=== PATIENT | female | born 1975 | race Caucasian/White ===

== ENCOUNTER 2018-07-10 11:54 | Observation (INO) ==
[2018-07-10] MEDS ORDERED: NS 1000 ML 1,000 ML ONE ×2 (12:35→14:34)
[2018-07-10] MEDS ORDERED: NS 1000 ML 1,000 ML IV ONE (12:40)
[2018-07-10] MEDS ORDERED: ZOFRAN INJ 4 MG VIAL IVP ONE (12:40)
[2018-07-10] MEDS ORDERED: PEPCID 20 MG IV PREMIX* 20 MG/50 ML BAG IV ONE ×2 (12:40→13:04)
--- NOTE | 2018-07-10 12:43 | ED.ABDFE ---
HPI Time Seen Time Seen by Provider: 07/10/18 12:39 PCP Primary Care Physician: ESTIVEN Complaint Chief Complaint:: ABD PAIN TO RIGHT UPPER SIDE THAT STARTED X1 WEEK AGO AND HAS PROGRESSED TO UNBEARABLE. VOMITING AND DIARRHEA WITH ANY FOOD INTAKE. Self Treatment fo Chief Complaint: NPO SINCE LAST NIGHT Source History Provided: Patient and Family Member Mode of arrival Mode of Arrival: Ambulatory Timing Onset of Chief Complaint: 07/02/18 PMH PMH Past Medical History: Yes Past Medical History: Anemia, Anxiety, Arthritis, Depression, Diabetes, Dyslipidemia, GERD, Gout, Headaches and Hypertension Past Medical History Comment: FIBROMYALGIA Past Surgical History: Yes Surgical History: Tonsillectomy Family History History of Family Medical Conditions: Yes Family Medical History: Diabetes Mellitus, Cancer, [place], Coronary Artery Disease, Heart Failure, Sudden Cardiac and Hypertension Social History Does any household member use tobacco: No Alcohol Use: None Do you use any recreational Drugs:: No Lives With: Family Lives Where: Home infectious screening In the last 2 months have you had wt loss of >10#?: NO Have you had fever, night sweats or hemotysis?: No Have you traveled outside the country in the last 6 months?: No Isolation: Standard PE Vital Signs Vitals: Temperature 97.9 F Pulse Rate [Right Radial] 68 Pulse Rate 97 Respiratory Rate 18 Blood Pressure [Left Arm] 136/78 Blood Pressure 132/89 O2 Sat by Pulse Oximetry 100 ROR Labs Reviewed Result Diagrams: 07/10/18 12:46 07/10/18 12:46 Laboratory: WBC 7.4 X10^3/uL (3.6-10.0) 07/10/18 12:46 RBC 4.70 X10^6/uL (3.5-5.4) 07/10/18 12:46 Hgb 13.2 g/dL (12.0-16.0) 07/10/18 12:46 Hct 40.0 % (36.0-47.0) 07/10/18 12:46 MCV 85.0 fL (80.0-100.0) 07/10/18 12:46 MCH 28.0 pg (27.0-34.0) 07/10/18 12:46 MCHC 32.9 g/dL (33.0-35.0) L 07/10/18 12:46 RDW 15.4 % (11.6-16.5) 07/10/18 12:46 Plt Count 284 X10^3/uL (150.0-450.0) 07/10/18 12:46 MPV 8.7 fL (7.4-11.0) 07/10/18 12:46 Neut % (Auto) 64.7 % (42.0-75.0) 07/10/18 12:46 Lymph % (Auto) 25.3 % (21.0-51.0) 07/10/18 12:46 [place] % (Auto) 6.8 % (0.0-13.0) 07/10/18 12:46 Eos % (Auto) 2.2 % (0.9-2.9) 07/10/18 12:46 Baso % (Auto) 1.0 % (0.2-1.0) 07/10/18 12:46 Neut # (Auto) 4.8 x10^3/uL (2.2-4.8) 07/10/18 12:46 Lymph # (Auto) 1.9 X10^3/uL (1.3-2.9) 07/10/18 12:46 [place] # (Auto) 0.5 x10^3/uL (0.3-0.8) 07/10/18 12:46 Eos # (Auto) 0.2 x10^3/uL (0.0-0.2) 07/10/18 12:46 Baso # (Auto) 0.1 X10^3/uL (0.0-0.1) 07/10/18 12:46 Absolute Nucleated RBC 0.0 /100WBC 07/10/18 12:46 Sodium 142 mmol/L (136-145) 07/10/18 12:46 Corrected Sodium TNP 07/10/18 12:46 Potassium 5.1 mmol/L (3.5-5.1) 07/10/18 12:46 Chloride 108 mmol/L (98-107) H 07/10/18 12:46 Carbon Dioxide 23.9 mmol/L (21-32) 07/10/18 12:46 BUN 23 mg/dL (7-18) H 07/10/18 12:46 Creatinine 1.62 mg/dL (0.55-1.02) H 07/10/18 12:46 Est GFR (MDRD) Af Amer 45 (>60) L 07/10/18 12:46 Est GFR (MDRD) Non-Af 37 (>60) L 07/10/18 12:46 Glucose 99 mg/dL (65-99) 07/10/18 12:46 Calcium 9.4 mg/dL (8.5-10.1) 07/10/18 12:46 Corrected Calcium TNP 07/10/18 12:46 Total Bilirubin 0.70 mg/dL (0.2-1.0) 07/10/18 12:46 AST 20 Units/L (15-37) 07/10/18 12:46 ALT 20 Units/L (12-78) 07/10/18 12:46 Alkaline Phosphatase 68 Units/L (46-116) 07/10/18 12:46 Total Protein 7.5 g/dL (6.4-8.2) 07/10/18 12:46 Albumin 3.6 g/dL (3.4-5.0) 07/10/18 12:46 Globulin 3.9 g/dL (2.5-4.5) 07/10/18 12:46 Albumin/Globulin Ratio 0.9 Ratio (1.1-2.1) L 07/10/18 12:46 Amylase 51 Units/L (25-115) 07/10/18 12:46 Lipase 248 Units/L (73-393) 07/10/18 12:46 Specimen Type Clean catch urine 07/10/18 14:08 Urine Color Yellow (YELLOW) 07/10/18 14:08 Urine Appearance Hazy (CLEAR) 07/10/18 14:08 Urine pH 5.0 (5.0 - 8.0) 07/10/18 14:08 Ur Specific [place] 1.010 (1.000-1.030) 07/10/18 14:08 Urine Protein Negative (NEGATIVE) 07/10/18 14:08 Urine Glucose (UA) Negative (NEGATIVE) 07/10/18 14:08 Urine Ketones Negative (NEGATIVE) 07/10/18 14:08 Urine Occult Blood Negative (NEGATIVE) 07/10/18 14:08 Urine Nitrite Negative (NEGATIVE) 07/10/18 14:08 Urine Bilirubin Negative (NEGATIVE) 07/10/18 14:08 Urine Urobilinogen Normal (NORMAL) 07/10/18 14:08 Ur Leukocyte Esterase 1+ (NEGATIVE) 07/10/18 14:08 Urine RBC None seen /HPF (NONE SEEN) 07/10/18 14:08 Urine WBC 0-2 /HPF (NONE SEEN) 07/10/18 14:08 Ur Squamous Epith Cells Negative /HPF (NEGATIVE) 07/10/18 14:08 Urine Bacteria Negative /HPF (NEGATIVE) 07/10/18 14:08 Ur Culture Indicated? No/not indicated 07/10/18 14:08
[2018-07-10 12:53] LABS: BASOPHILS # (AUTO) 0.1 X10^3/uL (0.0-0.1); EOSINOPHILS # (AUTO) 0.2 x10^3/uL (0.0-0.2); EOSINOPHILS % (AUTO) 2.2 % (0.9-2.9); HEMOGLOBIN 13.2 g/dL (12.0-16.0); LYMPHOCYTES # (AUTO) 1.9 X10^3/uL (1.3-2.9); LYMPHOCYTES % (AUTO) 25.3 % (21.0-51.0); MEAN CORPUSCULAR HGB CONC 32.9 g/dL (33.0-35.0); MEAN PLATELET VOLUME 8.7 fL (7.4-11.0); MONOCYTES # (AUTO) 0.5 x10^3/uL (0.3-0.8); MONOCYTES % (AUTO) 6.8 % (0.0-13.0); NEUTROPHILS # (AUTO) 4.8 x10^3/uL (2.2-4.8); NEUTROPHILS % (AUTO) 64.7 % (42.0-75.0); PLATELET COUNT 284 X10^3/uL (150.0-450.0); RED CELL DISTRIBUTION WIDTH 15.4 % (11.6-16.5); WHITE BLOOD COUNT 7.4 X10^3/uL (3.6-10.0)
[2018-07-10] MEDS ORDERED: ZOFRAN INJ 4 MG VIAL ONE (13:04)
[2018-07-10 13:13] LABS: ALANINE AMINOTRANSFERASE 20 Units/L (12-78); ALBUMIN 3.6 g/dL (3.4-5.0); ALKALINE PHOSPHATASE 68 Units/L (46-116); AMYLASE 51 Units/L (25-115); ASPARTATE AMINO TRANSFERASE 20 Units/L (15-37); BLOOD UREA NITROGEN 23 mg/dL (7-18); CALCIUM 9.4 mg/dL (8.5-10.1); CARBON DIOXIDE 23.9 mmol/L (21-32); CHLORIDE 108 mmol/L (98-107); CREATININE 1.62 mg/dL (0.55-1.02); LIPASE 248 Units/L (73-393); SODIUM 142 mmol/L (136-145); TOTAL PROTEIN 7.5 g/dL (6.4-8.2); eGFR NON BLACK RACES 37 (>60)
[2018-07-10] MEDS ORDERED: VERSED ONE (14:26)
[2018-07-10] MEDS ORDERED: EPHEDRINE SULFATE INJ ONE (14:26)
[2018-07-10] MEDS ORDERED: NEOSTIGMINE INJ ONE (14:26)
[2018-07-10] MEDS ORDERED: SUPRANE IN ONE (14:26)
[2018-07-10] MEDS ORDERED: QUELICIN (OR ANECTINE) ONE (14:26)
[2018-07-10] MEDS ORDERED: DIPRIVAN VIAL ONE (14:26)
[2018-07-10] MEDS ORDERED: ROBINUL ONE (14:26)
[2018-07-10] MEDS ORDERED: TORADOL 60 MG VIAL ONE (14:26)
[2018-07-10] MEDS ORDERED: NORCURON INJ 10 MG VIAL ONE (14:26)
[2018-07-10] MEDS ORDERED: MORPHINE SULFATE INJ 4 MG IVP ONE (14:36)
[2018-07-10] MEDS ORDERED: MORPHINE SULFATE INJ 4 MG ONE (14:45)
[2018-07-10] MEDS ORDERED: NS 1000 ML 1,000 ML IV SCH (15:00)
[2018-07-10 15:15] LABS: BILIRUBIN,URINE NEGATIVE (NEGATIVE); BLOOD/HEMOGLOBIN,URINE NEGATIVE (NEGATIVE); GLUCOSE, URINE NEGATIVE (NEGATIVE); KETONES,URINE NEGATIVE (NEGATIVE); LEUKOCYTE ESTERASE ,URINE 1+ (NEGATIVE); NITRITES,URINE NEGATIVE (NEGATIVE); PROTEIN,URINE NEGATIVE (NEGATIVE); UROBILINOGEN,URINE NORMAL (NORMAL)
[2018-07-10 15:22] LABS: APPEARANCE,URINE HAZY (CLEAR); COLOR,URINE YELLOW (YELLOW)
--- NOTE | 2018-07-10 15:22 | CT ---
CT ABDOMEN AND PELVIS WITHOUT CONTRAST CLINICAL HISTORY: 42-year-old female with right upper quadrant pain. COMPARISON: None. TECHNIQUE: Multiple contiguous computed tomographic axial images of the abdomen and pelvis were obtained without the use of oral or intravenous contrast. Images were reformatted in the coronal and sagittal planes. FINDINGS: The lung bases demonstrate no evidence of focal air-space opacification, pleural effusion, pneumothorax, or suspicious pulmonary nodules. The imaged inferior mediastinum and heart are normal in appearance without evidence of pericardial effusion. The liver, pancreas, and spleen are within normal limits for noncontrast imaging. Multiple peripherally calcified dependent gallstones within a physiologically distended gallbladder without CT evidence of acute cholecystitis. The adrenal glands and kidneys are normal bilaterally. There are no nephroureteral stones or perinephric fluid collections. There is no evidence of hydroureteronephrosis and the ureters run in an unobstructed course to a well distended urinary bladder. The uterus is anteverted and normal in size. The ovaries, vagina and perineum are within normal limits. The appendix is normal in appearance. The bowel is without obstruction or inflammation and there is no free fluid or free air within the peritoneal cavity. There are no pathologically enlarged lymph nodes in the abdomen or pelvis. The arteriovascular structures are within normal limits for a study without contrast. Soft tissues are normal. The osseous structures are intact without fracture or malalignment. Degenerative changes of the imaged spine most pronounced L5-S1 with vacuum disc. IMPRESSION: 1. Cholelithiasis without CT evidence of acute cholecystitis. Correlation with serology and ultrasound recommended. 2. Normal appendix. 3. No other acute intra-abdominal intrapelvic process. Reported By:
[2018-07-10 15:26] LABS: RBC,URINE NONE SEEN /HPF (NONE SEEN)
[2018-07-10 15:27] LABS: BACTERIA,URINE NEGATIVE /HPF (NEGATIVE); SQUAMOUS EPITHELIAL CELL,UR NEGATIVE /HPF (NEGATIVE)
[2018-07-10] MEDS ORDERED: ZOFRAN INJ 4 MG VIAL IVP PRN (16:38)
[2018-07-10] MEDS ORDERED: TRAZODONE 150 MG PO SCH (17:08)
--- NOTE | 2018-07-10 17:14 | RAD ---
Exam: Portable chest History: 42-year-old female with right upper quadrant pain. Comparison: None Findings: Heart size and pulmonary vasculature are normal. Lungs are clear with no infiltrate or significant effusion on either side. Right hemidiaphragm is mildly elevated. Bony thorax is unremarkable. Impression: No acute cardiopulmonary abnormality is seen on this exam. Reported By:
[2018-07-10] MEDS ORDERED: FLUVIRIN or FLUCELVAX IM ONE (18:15)
[2018-07-10] MEDS ORDERED: PREVNAR 13 IM ONE (18:15)
[2018-07-10] MEDS: CELEXA PO SCH (18:32)
[2018-07-10] MEDS: NORVASC TAB 10 MG PO SCH (18:33)
[2018-07-10] MEDS: ZYLOPRIM PO SCH (18:33)
[2018-07-10] MEDS: MORPHINE SULFATE INJ 4 MG IVP PRN (19:30)
[2018-07-10] MEDS ORDERED: ZOCOR TAB 40 MG PO SCH (21:00)
[2018-07-10] MEDS ORDERED: DESYREL PO SCH (21:00)
[2018-07-10] MEDS ORDERED: GLUCOPHAGE PO SCH (21:00)
[2018-07-10] MEDS ORDERED: GLUCOPHAGE ONE (21:35)
[2018-07-10] MEDS: NEURONTIN CAP 400 MG PO SCH (21:39)
[2018-07-10] MEDS: ZANAFLEX PO SCH (21:39)
[2018-07-10] MEDS: LEVAQUIN PREMIX IV 500 MG 500 MG/100 ML BAG IV SCH (21:39)
[2018-07-10] MEDS: D5 1/2 NS 1000 ML 1,000 ML IV SCH (23:02)
[2018-07-11] MEDS: D5 1/2 NS 1000 ML 1,000 ML IV SCH ×3 (00:59→15:25)
[2018-07-11] MEDS: ZANAFLEX PO SCH ×3 (03:49→14:25)
[2018-07-11] MEDS: NEURONTIN CAP 400 MG PO SCH ×2 (05:24→14:25)
[2018-07-11 05:35] LABS: BASOPHILS % (AUTO) 0.8 % (0.2-1.0); EOSINOPHILS # (AUTO) 0.2 x10^3/uL (0.0-0.2); EOSINOPHILS % (AUTO) 3.5 % (0.9-2.9); HEMATOCRIT 35.2 % (36.0-47.0); HEMOGLOBIN 11.5 g/dL (12.0-16.0); LYMPHOCYTES # (AUTO) 2.2 X10^3/uL (1.3-2.9); LYMPHOCYTES % (AUTO) 40.2 % (21.0-51.0); MEAN CORPUSCULAR HEMOGLOBIN 28.1 pg (27.0-34.0); MEAN CORPUSCULAR HGB CONC 32.7 g/dL (33.0-35.0); MEAN CORPUSCULAR VOLUME 85.9 fL (80.0-100.0); MONOCYTES # (AUTO) 0.5 x10^3/uL (0.3-0.8); MONOCYTES % (AUTO) 8.7 % (0.0-13.0); NEUTROPHILS # (AUTO) 2.6 x10^3/uL (2.2-4.8); NEUTROPHILS % (AUTO) 46.8 % (42.0-75.0); PLATELET COUNT 263 X10^3/uL (150.0-450.0); RED CELL DISTRIBUTION WIDTH 15.8 % (11.6-16.5); WHITE BLOOD COUNT 5.5 X10^3/uL (3.6-10.0)
[2018-07-11 05:47] LABS: ALANINE AMINOTRANSFERASE 17 Units/L (12-78); ALBUMIN 3.1 g/dL (3.4-5.0); ALKALINE PHOSPHATASE 56 Units/L (46-116); ASPARTATE AMINO TRANSFERASE 14 Units/L (15-37); BLOOD UREA NITROGEN 21 mg/dL (7-18); CALCIUM 8.7 mg/dL (8.5-10.1); CARBON DIOXIDE 23.7 mmol/L (21-32); CHLORIDE 106 mmol/L (98-107); COR CA(FOR HYPOALB) 9.4 mg/dL (8.5-10.1); CREATININE 1.52 mg/dL (0.55-1.02); SODIUM 139 mmol/L (136-145); TOTAL PROTEIN 6.6 g/dL (6.4-8.2); eGFR NON BLACK RACES 40 (>60)
[2018-07-11] MEDS: LEVAQUIN PREMIX IV 500 MG 500 MG/100 ML BAG IV SCH (08:22)
[2018-07-11] MEDS: MORPHINE SULFATE INJ 4 MG IVP PRN ×2 (08:22→14:24)
--- NOTE | 2018-07-11 08:23 | DR.H&P ---
H&P - History & Physical for Day of: H&P Date: 07/10/18 - Chief Complaint Chief Complaint: RUQ ABDOMINAL PAIN - History of Present Illness History of Present Illness: IS A 42 YEAR OLD PATIENT OF CATAL[place] CLAY WHO PRESENTED TO THE EMERGENCY ROOM WITH COMPLAINTS OF RIGHT UPPER QUADRANT ABDOMINAL PAIN X 1 WEEK THAT HAS PROGRESSIVELY GOTTEN WORSE. SHE REPORTS VOMITING AND DIARRHEA WITH ANY FOOD INTAKE. PAST MEDICAL HISTORY INCLUDES: ANEMIA, ANXIETY, ARTHRITIS, DEPRESSION, DIABETES, DYSLIPIDEMIA, GERD, GOUT, HTN, AND TONSILLECTOMY. ON ARRIVAL, VITALS WERE 97.9-97-18-99%-132/89. LABS WERE OBTAINED. ABNORMAL LAB VALUES INCLUDE THE FOLLOWING: CHLORIDE 108, BUN 23, CREATININE 1.62. URINALYSIS REVEALED WBC 0-2, RBC NONE SEEN, LEUKOCYTES 1+, BACTERIA NEGATIVE. AN ABDOMEN/PELVIS CT WITHOUT CONTRAST WAS OBTAINED AND REVEALED: Cholelithiasis without CT evidence of acute cholecystitis. Correlation with serology and ultrasound recommended. Normal appendix. No other acute intra- abdominal intrapelvic process. A CHEST XRAY WAS OBTAINED AND REVEALED: NO ACUTE CARDIOPULMONARY ABNORMALITY SEEN ON THIS EXAM. NORMAL SINUS RHYTHM NOTED WITH NORMAL RATE. SHE WAS GIVEN MORPHINE 4MG IV X 1, ZOFRAN 4MG IV X 1, PEPCID 20MG IV X 1, AND A NORMAL SALINE BOLUS IN THE ER WITH ONLY MILD IMPROVMENT. SHE WAS ADMITTED FOR FURTHER EVALUATION AND TREATMENT OF ABDOMINAL PAIN AND CHOLELITHIASIS. WE WILL CONTACT . SHE WILL BE STARTED ON 5D1/2NS AT 150ML/HR, LEVAQUIN 500MG IV DAILY, AND WE WILL CONTINUE HOME MEDICATIONS. OTHERWISE, WE PLAN TO FOLLOW UP WITH AM LABS AND CONTINUE TO MONITOR. - Past Medical History Past Medical History: Hypertension, Dyslipidemia, Diabetes, Depression, Anxiety, Anemia, GERD, Arthritis, Gout, Headaches - Past Surgical History Surgical History: Tonsillectomy - Family History Family Medical History: Diabetes Mellitus, Cancer, [place], Coronary Artery Disease, Heart Failure, Sudden Cardiac , Hypertension - Social History Does patient currently use any type of tobacco product: No Have you used tobacco products in the last 12 months: No Type of Tobacco Use: None Does any household member use tobacco: No Alcohol Use: None Drug Use: None - Medications Home Medications: No Known Drug Allergies Allergy (Verified 07/10/18 12:03) CONTINUE taking the following medications allopurinol 100 mg PO QDAY 07/10/18 [History] amlodipine 10 mg PO QDAY 07/10/18 [History] citalopram [Celexa] 20 mg PO QDAY 07/10/18 [History] dicyclomine 20 mg PO QID 07/10/18 [History] gabapentin 800 mg PO TID 07/10/18 [History] metformin 500 mg PO HS 07/10/18 [History] methocarbamol [Robaxin-750] 750 mg PO BID 07/10/18 [History] naproxen sodium 440 mg PO HS 07/10/18 [History] simvastatin 40 mg PO QHS 07/10/18 [History] tizanidine 4 mg PO HS 07/10/18 [History] trazodone 150 mg PO QDAY 07/10/18 [History] - Review of Systems Constitutional: Fever Eyes: No Symptoms Reported ENT: No Symptoms Reported Respiratory: No Symptoms Reported Cardiovascular: No Symptoms Reported Gastrointestinal: See HPI, Nausea, Vomiting, Abdominal Pain, Diarrhea Genitourinary: No Symptoms Reported Musculoskeletal: No Symptoms Reported Skin: No Symptoms Reported Neurological: No Symptoms Reported - Physical Exam Vital Signs: Temperature 97.6 F Pulse Rate [Right Radial] 56 Pulse Rate 97 Respiratory Rate 20 Blood Pressure [Left Arm] 89/53 Blood Pressure 132/89 O2 Sat by Pulse Oximetry 98 Oriented: Normal Eyes: Normal Ear: Normal Nose: Normal Throat: Normal Respiratory: Clear Throughout Cardiovascular: Normal. negative: S3, S4, Murmur : Normal Auscultation: Bowel Sounds: Normal Palpation: Normal Tenderness: RUQ, Moderate. negative: Rebound, Guarding, Rigidity Skin: Normal Musculoskeletal: Normal Psychiatric: Normal Mood Description: Calm Affect: Normal Speech Pattern: Clear - Assessment/Plan (1) Cholelithiasis Qualifiers: Cholelithiasis location: gallbladder Cholecystitis presence: without cholecystitis Biliary obstruction: without biliary obstruction Qualified Code(s): K80.20 - Calculus of gallbladder without cholecystitis without obstruction Status: Acute Plan: ADMIT, SURGICAL CONSULT, MORPHINE, LEVAQUIN 500MG IV DAILY, CONTINUE TO MONITOR - Allergies Allergies/Adverse Reactions: Allergies Allergy/AdvReac Type Severity Reaction Status Date / Time No Known Drug Allergies Allergy Verified 07/10/18 12:03
[2018-07-11] MEDS: ZYLOPRIM PO SCH ×2 (08:24→08:31)
[2018-07-11] MEDS: CELEXA PO SCH ×2 (08:24→08:30)
[2018-07-11] MEDS: NORVASC TAB 10 MG PO SCH (08:25)
[2018-07-11] MEDS ORDERED: PEPCID TAB 20 MG PO SCH (09:00)
[2018-07-11] MEDS ORDERED: LR 1000 ML IV 1,000 ML IV ONE (09:40)
[2018-07-11] MEDS ORDERED: ANCEF 1 GRAM IV PREMIX* 1 G/50 ML BAG IV ONE (09:41)
[2018-07-11] MEDS ORDERED: FENTANYL INJ 250 mcg ONE (10:05)
[2018-07-11] MEDS ORDERED: BACTROBAN TOPICAL OINT ONE (11:11)
[2018-07-11] MEDS ORDERED: BENADRYL INJ 50 MG VIAL IVP PRN (11:23)
[2018-07-11] MEDS ORDERED: DILAUDID INJ IVP PRN (11:23)
[2018-07-11] MEDS ORDERED: REGLAN INJ 10 MG VIAL IVP PRN (11:23)
[2018-07-11] MEDS ORDERED: ZOFRAN INJ 4 MG VIAL IVP PRN (11:23)
[2018-07-11] MEDS ORDERED: PHENERGAN INJ 25 MG IVP PRN (11:23)
[2018-07-11] MEDS ORDERED: ZOFRAN INJ 4 MG VIAL ONE (15:33)
[2018-07-11] MEDS ORDERED: EPHEDRINE SULFATE INJ ONE (15:33)
[2018-07-11] MEDS ORDERED: DIPRIVAN VIAL ONE (15:33)
[2018-07-11] MEDS ORDERED: TORADOL 30 MG VIAL ONE (15:33)
[2018-07-11] MEDS ORDERED: NORCURON INJ 10 MG VIAL ONE (15:33)
[2018-07-11] MEDS ORDERED: QUELICIN (OR ANECTINE) ONE (15:33)
[2018-07-11] MEDS ORDERED: VERSED ONE (15:33)
[2018-07-11] MEDS ORDERED: ROBINUL ONE (15:33)
[2018-07-11] MEDS ORDERED: SUPRANE IN ONE (15:33)
[2018-07-11] MEDS ORDERED: NEOSTIGMINE INJ ONE (15:33)
[2018-07-11 15:56] VITALS: BMI 38.7
[2018-07-11 15:58] VITALS: BP 113/64
== END 2018-07-11 16:15 | disposition home or self-care (01) ==
LOC: ER 11:54 → MED/SURG 11:54
PROVIDERS: ADMIT Internal Medicine; ATTEND Internal Medicine
DX: R11.2 Nausea with vomiting, unspecified; E11.9 Type 2 diabetes mellitus without complications; I10 Essential (primary) hypertension; M79.7 Fibromyalgia; R10.11 Right upper quadrant pain; F41.8 Other specified anxiety disorders; R19.7 Diarrhea, unspecified; Z23 Encounter for immunization; E78.2 Mixed hyperlipidemia; K21.9 Gastro-esophageal reflux disease without esophagitis; E66.01 Morbid (severe) obesity due to excess calories; K80.00 Calculus of gallbladder with acute cholecystitis without obstruction; R94.4 Abnormal results of kidney function studies
CPT/HCPCS: 36415; 71010; 71045; 74176; 80053; 81001; 82150; 83690; 85025; 93005; 94760; 96365; 96367; 96374; 96375; 99282; 99284; A4216; A4222; S0028; G0378; J0330; J0690; J1885; J1956; J2250; J2270; J2405; J2704; J2710; J3010; J3490; J7030; J7120; S5010